=== PATIENT | female | born 1965 | race Caucasian/White ===

== ENCOUNTER 2017-08-12 14:42 | Emergency (ER) | payer OTHER ==
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
[2017-08-12] MEDS ORDERED: KETOROLAC TROMETHAMINE INJ/PF 30 MG/1 ML SDV IM ONE (15:24)
[2017-08-12 15:52] VITALS: BP 137/94
== END 2017-08-12 16:00 | disposition home or self-care (01) ==
LOC: ER 14:42
DX: S46.819A Strain of other muscles, fascia and tendons at shoulder and upper arm level, unspecified arm, initial encounter (principal); S16.1XXA Strain of muscle, fascia and tendon at neck level, initial encounter; M54.2 Cervicalgia; M54.9 Dorsalgia, unspecified; M25.519 Pain in unspecified shoulder; V89.2XXA Person injured in unspecified motor-vehicle accident, traffic, initial encounter
CPT/HCPCS: 99284; 96372; J1885

== ENCOUNTER 2017-08-25 10:33 | Emergency (ER) | payer OTHER ==
--- NOTE | 2017-08-25 12:23 | ER Document Report ---
HPI - HPI Pain Level: Denies Context: Patient is a 51-year-old female presents with nonproductive cough for 10 days with associated runny nose. She denies any fevers, chills, shortness breath, dyspnea on exertion. Admits to history seasonal allergies does not take anything [id number]. Otherwise healthy female at site of history of hypothyroidism and peripheral neuropathy. - CONSTITUTIONAL Constitutional: DENIES: Fever, Chills - EENT EENT: DENIES: Sore Throat, Ear Pain, Eye problems - NEURO Neurology: DENIES: Headache, Weakness, Vision blurred, Dizzinesss / Vertigo - CARDIOVASCULAR Cardiovascular: DENIES: Chest pain - RESPIRATORY Respiratory: REPORTS: Coughing. DENIES: Trouble Breathing - GASTROINTESTINAL Gastrointestinal: DENIES: Abdominal Pain, Black / Bloody Stools - URINARY Urinary: DENIES: Dysuria, Urgency, Frequency - MUSCULOSKELETAL Musculoskeletal: DENIES: Extremity pain Past Medical History - Social History Smoking Status: Unknown if Ever Smoked Chew tobacco use (# tins/day): No Frequency of alcohol use: None Drug Abuse: None Family History: Reviewed & Not Pertinent Patient has suicidal ideation: No Patient has homicidal ideation: No Renal/ Medical History: Denies: Hx Peritoneal Dialysis Past Surgical History: Reports: Hx Cholecystectomy, Hx Orthopedic Surgery - left knee, Hx Tubal Ligation Vertical Provider Document - CONSTITUTIONAL Agree With Documented VS: Yes Notes: PHYSICAL EXAM GENERAL: Alert, interacts well. HEENT: NCAT, pale conjunctiva, extraocular movements intact, pupils PERRL. external ear normal, no evidence of external auditory canal tenderness, blood/ drainage, cerumen impaction, TM intact without evidence of effusion, bulging, injection, MMM, Uvula midline. Airway patent. No evidence of tonsillar enlargement, peritonsillar abscess, retropharyngeal abscess. NECK: Full range of motion. Supple. Trachea midline. LUNGS: Clear to auscultation bilaterally, no wheezes, rales, or rhonchi. No respiratory distress. HEART: Regular rate and rhythm. No murmurs, gallops, or rubs. NEUROLOGICAL: Alert and oriented x4. Normal speech. PSYCH: Normal affect, normal mood. SKIN: Warm, dry, normal turgor. No rashes or lesions noted. - INFECTION CONTROL TRAVEL OUTSIDE OF THE [place] IN LAST 30 DAYS: No - RESPIRATORY O2 Sat by Pulse Oximetry: 100 Course - Re-evaluation Re-evalutation: 08/25/17 13:30 Patient is a 51-year-old female is hemodynamically stable, no acute distress and afebrile. Chest x-ray without any evidence of acute infiltrate or acute cardiopulmonary process. Presentation is consistent with a postnasal drip likely related to seasonal allergies. Low clinical suspicion for any underlying pneumonia, PE given PERC score negative, will score 0. Discussed with patient utilize [id number] antihistamines otherwise follow-up with primary care provider at discharge. Discussed with her strict return precautions stable for discharge home. - Vital Signs Vital signs: Temp Pulse Resp BP Pulse Ox 97.7 F 92 18 110/78 100 08/25/17 10:37 08/25/17 10:37 08/25/17 10:37 08/25/17 10:37 08/25/17 10:37 - Diagnostic Test Radiology reviewed: Image reviewed, Reports reviewed Discharge - Discharge Clinical Impression: Post-nasal drip, Cough Condition: Good Disposition: HOME, SELF-CARE Additional Instructions: Your symptoms today are consistent with post nasal drip which is related to a histamine reaction likely related to allergies. You take an over the counter antihistamine such as Claritin, Marva or Zyrtec. Please return to the ER with any symptoms including fever, puss draining from your nostrils, headache, weakness or any symptoms worrisome to you Referrals: [facility] [NO LOCAL MD] - Follow up as needed [facility] [Provider Group] - Follow up as needed
--- NOTE | 2017-08-25 13:02 | RADIOLOGY REPORT (SQ) ---
EXAM DESCRIPTION: CHEST PA/LAT COMPLETED DATE/TIME: 08/25/2017 12:50 pm REASON FOR STUDY: cough COMPARISON: None. NUMBER OF VIEWS: Two view. TECHNIQUE: Frontal and lateral radiographic views of the chest acquired. LIMITATIONS: None. FINDINGS: LUNGS AND PLEURA: No opacities, masses or pneumothorax. No pleural effusion. MEDIASTINUM AND HILAR STRUCTURES: No masses or contour abnormalities. HEART AND VASCULATURE: Heart normal size. No evidence for failure. BONY STRUCTURES: No acute findings. HARDWARE: None. OTHER: No other significant finding. IMPRESSION: NO SIGNIFICANT RADIOGRAPHIC FINDING IN THE CHEST. TECHNICAL DOCUMENTATION: JOB ID: [id number] [employer]- All Rights Reserved Reading location - IP/workstation name: [email or web address]
[2017-08-25 13:45] VITALS: BP 120/81
== END 2017-08-25 13:45 | disposition home or self-care (01) ==
LOC: ER 10:33
DX: R05 Cough (principal); R09.82 Postnasal drip
CPT/HCPCS: 71046; 99283

== ENCOUNTER → 2017-09-30 | Outpatient (CLI) | payer OTHER ==
[2017-09-30 13:30] LABS: ABSOLUTE LYMPHOCYTES (AUTO) 1.2 10^3/uL (0.5-4.7); ABSOLUTE MONOCYTES (AUTO) 0.7 10^3/uL (0.1-1.4); BASOPHILS % (AUTO) 0.6 % (0-2); EOSINOPHILS % (AUTO) 0.6 % (0-6); HEMOGLOBIN 14.8 g/dL (12.0-15.5); LYMPHOCYTES % (AUTO) 24.6 % (13-45); MEAN CORPUSCULAR HEMOGLOBIN 29.7 pg (27.0-33.4); MEAN CORPUSCULAR HGB CONC 33.7 g/dL (32.0-36.0); MEAN CORPUSCULAR VOLUME 88 fl (80-97); PLATELET COUNT 206 10^3/uL (150-450); RED BLOOD COUNT 4.98 10^6/uL (3.72-5.28); RED CELL DISTRIBUTION WIDTH 14.7 % (11.5-14.0); SEGMENTED NEUTROPHILS % (AUTO) 60.2 % (42-78); TOTAL CELLS COUNTED % (AUTO) 100 %
[2017-09-30 13:53] LABS: ALANINE AMINOTRANSFERASE 36 U/L (9-52); ALKALINE PHOSPHATASE 99 U/L (38-126); ANION GAP 10 (5-19); ASPARTATE AMINO TRANSFERASE 61 U/L (14-36); BILIRUBIN,DIRECT 0.3 mg/dL (0.0-0.4); BILIRUBIN,TOTAL 1.9 mg/dL (0.2-1.3); BLOOD UREA NITROGEN 18 mg/dL (7-20); CALCIUM 9.4 mg/dL (8.4-10.2); CARBON DIOXIDE 32 mmol/L (22-30); CHLORIDE 94 mmol/L (98-107); CHOLESTEROL 205.71 mg/dL (0-200); GLUCOSE 83 mg/dL (75-110); POTASSIUM 3.4 mmol/L (3.6-5.0); SODIUM 136.2 mmol/L (137-145); TOTAL PROTEIN 7.1 g/dL (6.3-8.2); TRIGLYCERIDES 90 mg/dL (<150); URIC ACID 3.4 mg/dL (2.5-7.5)
[2017-09-30 14:04] LABS: DIRECT LDL 71 mg/dL (<100)
[2017-09-30 14:09] LABS: FREE T3 3.59 pg/mL (2.77-5.27); FREE T4 (FREE THYROXINE) 0.77 ng/dL (0.78-2.19)
[2017-09-30 14:11] LABS: ERYTHROCYTE SEDIMENTATION RATE 7 mm/hr (0-30)
[2017-09-30 14:23] LABS: THYROID STIMULATING HORMONE 3.56 uIU/mL (0.47-4.68)
== END ==
LOC: CCC 12:17
DX: G90.09 Other idiopathic peripheral autonomic neuropathy (principal); E03.9 Hypothyroidism, unspecified; E61.2 Magnesium deficiency; E87.6 Hypokalemia
CPT/HCPCS: 36415; 80053; 80061; 82607; 82746; 83036; 83735; 84439; 84443; 84481; 84550; 85025; 85652; 86038

== ENCOUNTER → 2018-01-21 | Outpatient (CLI) | payer OTHER ==
[2018-01-21 14:34] LABS: ABSOLUTE LYMPHOCYTES (AUTO) 1.1 10^3/uL (0.5-4.7); ABSOLUTE MONOCYTES (AUTO) 0.4 10^3/uL (0.1-1.4); ABSOLUTE NEUT (AUTO) 2.3 10^3/uL (1.7-8.2); EOSINOPHILS % (AUTO) 0.9 % (0-6); HEMATOCRIT 37.4 % (36.0-47.0); HEMOGLOBIN 12.3 g/dL (12.0-15.5); LYMPHOCYTES % (AUTO) 28.7 % (13-45); MEAN CORPUSCULAR HEMOGLOBIN 28.1 pg (27.0-33.4); MEAN CORPUSCULAR VOLUME 85 fl (80-97); MONOCYTES % (AUTO) 11.4 % (3-13); PLATELET COUNT 171 10^3/uL (150-450); TOTAL CELLS COUNTED % (AUTO) 100 %; WHITE BLOOD COUNT 3.9 10^3/uL (4.0-10.5)
[2018-01-21 14:57] LABS: ANION GAP 12 (5-19); BLOOD UREA NITROGEN 10 mg/dL (7-20); CALCIUM 8.4 mg/dL (8.4-10.2); CARBON DIOXIDE 31 mmol/L (22-30); CHLORIDE 101 mmol/L (98-107); GLUCOSE 74 mg/dL (75-110); POTASSIUM 3.7 mmol/L (3.6-5.0); SODIUM 143.7 mmol/L (137-145)
== END ==
LOC: CCC 13:56
DX: R55 Syncope and collapse (principal)
CPT/HCPCS: 36415; 80048; 83036; 84443; 85025

== ENCOUNTER → 2019-01-26 | Outpatient (CLI) | payer OTHER ==
[2019-01-26 17:20] LABS: ABSOLUTE MONOCYTES (AUTO) 0.7 10^3/uL (0.1-1.4); EOSINOPHILS % (AUTO) 0.4 % (0-6); HEMOGLOBIN 13.5 g/dL (12.0-15.5); TOTAL CELLS COUNTED % (AUTO) 100 %
[2019-01-26 17:43] LABS: ALBUMIN 4.2 g/dL (3.5-5.0); ALKALINE PHOSPHATASE 88 U/L (38-126); ANION GAP 7 (5-19); ASPARTATE AMINO TRANSFERASE 40 U/L (14-36); BILIRUBIN,DIRECT 0.2 mg/dL (0.0-0.4); BILIRUBIN,TOTAL 1.4 mg/dL (0.2-1.3); BLOOD UREA NITROGEN 17 mg/dL (7-20); CALCIUM 8.8 mg/dL (8.4-10.2); CARBON DIOXIDE 31 mmol/L (22-30); CHLORIDE 97 mmol/L (98-107); GLUCOSE 100 mg/dL (75-110); POTASSIUM 3.5 mmol/L (3.6-5.0); TOTAL PROTEIN 7.1 g/dL (6.3-8.2)
[2019-01-26 18:00] LABS: ABSOLUTE LYMPHOCYTES (AUTO) 1.5 10^3/uL (0.5-4.7); ABSOLUTE NEUT (AUTO) 2.7 10^3/uL (1.7-8.2); BASOPHILS % (AUTO) 0.4 % (0-2); HEMATOCRIT 40.8 % (36.0-47.0); LYMPHOCYTES % (AUTO) 30.5 % (13-45); MEAN CORPUSCULAR HEMOGLOBIN 26.4 pg (27.0-33.4); MEAN CORPUSCULAR VOLUME 80 fl (80-97); MONOCYTES % (AUTO) 13.3 % (3-13); PLATELET COUNT 155 10^3/uL (150-450); RED CELL DISTRIBUTION WIDTH 14.9 % (11.5-14.0); SEGMENTED NEUTROPHILS % (AUTO) 55.4 % (42-78)
== END ==
LOC: OD 16:32
DX: Z00.00 Encounter for general adult medical examination without abnormal findings (principal)
CPT/HCPCS: 36415; 80053; 83735; 85025; 86701

== ENCOUNTER → 2019-07-15 | Outpatient (CLI) | payer OTHER ==
--- NOTE | 2019-07-15 10:37 | WOMENS IMAGING REPORT ---
EXAM DESCRIPTION: ADDISON SANCHEZ BILATERAL SCREEN COMPLETED DATE/TIME: 07/15/2019 8:05 am REASON FOR STUDY: Z12.31 ENCOUNTER FOR SCREENING MAMMOGRAM FOR MALIGNANT NEOPLASM OF BREAST Z12.31 ENCNTR SCREEN MAMMOGRAM FOR MALIGNANT NEOPLASM OF JULIANA COMPARISON: None. EXAM PARAMETERS: Standard craniocaudal and mediolateral oblique views of each breast recorded using digital acquisition. Read with the assistance of CAD. .[facility] - [employer] Inspector Version 9.2 LIMITATIONS: None. FINDINGS: No suspicious masses, suspicious calcifications or architectural distortion. No areas of c oncern. IMPRESSION: Negative MAMMOGRAM. BIRADS 1 BREAST DENSITY: b. There are scattered areas of fibroglandular density. BIRAD: ASSESSMENT: 1 NEGATIVE RECOMMENDATION: ROUTINE SCREENING Please continue yearly bilateral screening mammography in June 2020 COMMENT: The patient has been notified of the results by letter per MQSA requirements. Additional no tification policies are in place for contacting patient with suspicious or incomplete findings. Quality ID #[id number]: The [employer] recommends an annual screening mammogram for women aged 40 years or over. This facility utilizes a reminder system to ensure that all patients receive reminder letters, and/or direct phone calls for appointments. This includes reminders for routine scr eening mammograms, diagnostic mammograms, or other Breast Imaging Interventions when appropriate. Th is patient will be placed in the appropriate reminder system. TECHNICAL DOCUMENTATION: FINDING NUMBER: (1) ASSESSMENT: (1) JOB ID: [id number] [employer]- All Rights Reserved Reading location - IP/workstation name: [email or web address]
== END ==
LOC: WI 07:09
PROVIDERS: ATTEND Family Medicine
DX: Z12.31 Encounter for screening mammogram for malignant neoplasm of breast (principal)
CPT/HCPCS: 77067

== ENCOUNTER 2020-01-30 21:18 | Emergency (ER) | payer SELFPAY ==
--- NOTE | 2020-01-30 23:25 | ER Document Report ---
ED Respiratory Problem - General Chief Complaint: Breathing Difficulty Stated Complaint: DIFFICULTY BREATHING, CONGESTION, NAUSEA, COUGH Time Seen by Provider: 01/30/20 23:23 Primary Care Provider: MOMO LINTON MD [NO LOCAL MD] - Follow up as needed Information source: Patient Notes: 01/30/20 22:56 - ED Nursing Note by LEONEL HERRERA Num: [id number] : 1965 Patient Age: 54 Last Thursday reports nausea, vomiting, diarrhea and feeling light headed- symptoms begin. reports symptoms got better and returned, as be off and on for 6 days. Today was worse. Does complain of SOB, denies chest pain. Denies fevers and chills. States she feels like she is having a panic attack as well. \my notes 54-year-old female with purple hair and was seen by the [facility] Dr. Diaz and who takes magnesium and potassium and folate on a daily basis reports she has had coughing and 1 week of loose brown stools. She feels like she is having a panic attack at this time. She denies any use of alcohol at this time. 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 Patient is mouth and lips are dry. He denies any history of syphilis vaginal discharge bloody stools or hematemesis. She is a smoker. TRAVEL OUTSIDE OF THE [place] IN LAST 30 DAYS: No - HPI Patient complains to provider of: Other - weakness Onset: Last week Quality of pain: Achy Severity: Moderate Pain Level: 2 - Related Data Allergies/Adverse Reactions: amitriptyline Adverse Reaction (Verified 08/25/17 10:35) gabapentin Adverse Reaction (Verified 08/25/17 10:35) pregabalin [From Lyrica] Adverse Reaction (Verified 08/25/17 10:35) Past Medical History - General Information source: Patient - Social History Smoking Status: Current Every Day Smoker Cigarette use (# per day): Yes Chew tobacco use (# tins/day): No Smoking Education Provided: Yes Frequency of alcohol use: None Drug Abuse: None Lives with: Family Family History: Reviewed & Not Pertinent Patient has suicidal ideation: No Patient has homicidal ideation: No Renal/ Medical History: Denies: Hx Peritoneal Dialysis Past Surgical History: Reports: Hx Cholecystectomy, Hx Orthopedic Surgery - left knee, Hx Tubal Ligation Review of Systems - Review of Systems Constitutional: No symptoms reported EENT: No symptoms reported Cardiovascular: No symptoms reported Respiratory: No symptoms reported Gastrointestinal: See HPI, Abdominal pain, Diarrhea, Nausea, Vomiting Genitourinary: No symptoms reported Female Genitourinary: No symptoms reported Musculoskeletal: No symptoms reported Skin: No symptoms reported Hematologic/Lymphatic: No symptoms reported Neurological/Psychological: See HPI, Weakness Physical Exam - Vital signs Vitals: Resp Pulse Ox 22 H 100 01/30/20 22:14 01/30/20 22:14 Interpretation: Hypotensive, Tachycardic - HEENT Head: Normocephalic, Atraumatic Eyes: Normal Extraocular movements intact: Yes Pupils: PERRL Sinus: Normal Mouth/Lips: Other - dry Mucous membranes: Dry Pharynx: Erythema Neck: Normal - Respiratory Respiratory status: No respiratory distress Chest status: Nontender Breath sounds: Normal Chest palpation: Normal - Cardiovascular Rhythm: Tachycardia Heart sounds: Normal auscultation Murmur: No - Abdominal Inspection: Normal Distension: No distension Bowel sounds: Hyperactive Tenderness: Nontender Organomegaly: No organomegaly - Rectal Hemorrhoids: Other - deferred - Genitourinary External exam: Normal - Back Back: Normal - Extremities General upper extremity: Normal inspection General lower extremity: Normal inspection - Neurological Neuro grossly intact: Yes Cognition: Normal Orientation: AAOx4 [place] Coma Scale Eye Opening: Spontaneous [place] Coma Scale Verbal: Oriented [place] Coma Scale Motor: Obeys Commands [place] Coma Scale Total: 15 Speech: Normal Cranial nerves: Normal Motor strength normal: LUE, RUE, LLE, RLE - Psychological Associated symptoms: Anxious - Skin Skin Temperature: Warm Skin Moisture: Dry Skin Turgor: Tenting Course - Vital Signs Vital signs: Temp Pulse Resp BP Pulse Ox 98.0 F 16 109/71 100 01/31/20 02:41 01/31/20 05:52 01/31/20 05:52 01/31/20 05:52 - Laboratory Result Diagrams: 01/31/20 00:34 01/30/20 23:40 Laboratory results interpreted by me: 01/30/20 01/31/20 01/31/20 23:40 00:34 00:34 MCV 79 L MCH 26.4 L RDW 15.1 H Lymph % (Auto) 11.4 L [place] % (Auto) 17.9 H Sodium 130.2 L Potassium 2.4 L* Chloride 72 L Carbon Dioxide 33 H Anion Gap 25 H Est GFR ( Amer) 59 L Est GFR (MDRD) Non-Af 49 L Glucose 119 H Lactic Acid 5.3 H Total Bilirubin 1.6 H AST 61 H Urine Protein Urine Ketones Urine Urobilinogen Ur Leukocyte Esterase Urine Ascorbic Acid 01/31/20 01:10 MCV MCH RDW Lymph % (Auto) [place] % (Auto) Sodium Potassium Chloride Carbon Dioxide Anion Gap Est GFR ( Amer) Est GFR (MDRD) Non-Af Glucose Lactic Acid Total Bilirubin AST Urine Protein 30 H Urine Ketones TRACE H Urine Urobilinogen 2.0 H Ur Leukocyte Esterase MODERATE H Urine Ascorbic Acid 40 H - Diagnostic Test Radiology reviewed: Reports reviewed - Chest x-ray NAD except for old rib fractures Critical Care Note - Critical Care Note Comments: Recheck on patient at 0 400 reveals a much improved patient asking for water. Her blood pressure is much improved. She no longer has any anxiety shakes. Discharge - Discharge Clinical Impression: Gastroenteritis, Hypokalemia Hypotension Qualifiers: Hypotension type: unspecified hypotension type Qualified Code(s): I95.9 - Hypotension, unspecified Diarrhea Qualifiers: Diarrhea type: unspecified type Qualified Code(s): R19.7 - Diarrhea, unspecified UTI (urinary tract infection) Qualifiers: Urinary tract infection type: acute cystitis Hematuria presence: without hematuria Qualified Code(s): N30.00 - Acute cystitis without hematuria Condition: Fair Disposition: HOME, SELF-CARE Additional Instructions: Follow-up with Dr. Diaz return to ER as needed take medicines as directed/take your potassium daily with a meal. Also take your Levaquin daily for 5 days. Take your Pepcid daily for 12 days. Encourage fluids. Prescriptions: Potassium Chloride [K-Tab ER] 20 meq PO DAILY 10 Days #10 tablet.er Levofloxacin [Levaquin 500 mg Tablet] 500 mg PO DAILY #5 tablet Famotidine [Pepcid 20 mg Tablet] 20 mg PO DAILY #12 tablet Referrals: MOMO LINTON MD [NO LOCAL MD] - Follow up as needed
[2020-01-30] MEDS ORDERED: FAMOTIDINE INJ/PF 20 MG/2 ML SDV IV ONE (23:42)
[2020-01-30] MEDS ORDERED: PANTOPRAZOLE SODIUM 40 MG VIAL IV ONE (23:42)
[2020-01-30] MEDS ORDERED: ONDANSETRON HCL INJ/PF 4 MG/2 ML SDV IV ONE (23:42)
[2020-01-30] MEDS ORDERED: LORAZEPAM INJ 2 MG/1 ML VIAL IV ONE (23:43)
[2020-01-30] MEDS: NORMAL SALINE 1000 ML 1,000 ML IV PRN (23:53)
[2020-01-31 00:09] LABS: ALBUMIN 4.7 g/dL (3.5-5.0); ALKALINE PHOSPHATASE 97 U/L (38-126); ASPARTATE AMINO TRANSFERASE 61 U/L (14-36); BILIRUBIN,DIRECT 0.2 mg/dL (0.0-0.4); BILIRUBIN,TOTAL 1.6 mg/dL (0.2-1.3); BLOOD UREA NITROGEN 20 mg/dL (7-20); CALCIUM 9.5 mg/dL (8.4-10.2); GLUCOSE 119 mg/dL (75-110)
[2020-01-31 00:14] LABS: CARBON DIOXIDE 33 mmol/L (22-30); CHLORIDE 72 mmol/L (98-107)
[2020-01-31 00:28] LABS: POTASSIUM 2.4 mmol/L (3.6-5.0)
[2020-01-31] MEDS ORDERED: POTASSI CL 20 MEQ/50 ML RIDER 20 MEQ/50 ML RTUPB IV ONE (00:29)
--- NOTE | 2020-01-31 00:29 | RADIOLOGY REPORT (SQ) ---
EXAM DESCRIPTION: XR CHEST 1 VIEW COMPLETED DATE/TME: 01/30/2020 23:26 CLINICAL HISTORY: 54 years, Female, cough COMPARISON: 08/25/2017 chest NUMBER OF VIEWS: 1 TECHNIQUE: Portable chest LIMITATIONS: None. FINDINGS: The heart size is normal. Osteopenia. Old right rib fractures. Lungs clear. No pneumothorax IMPRESSION: No acute cardiopulmonary process copyright 2010 [employer]- All Rights Reserved
--- NOTE | 2020-01-31 00:30 | RADIOLOGY REPORT (SQ) ---
EXAM DESCRIPTION: XR ABDOMEN 1 VIEW (KUB) COMPLETED DATE/TME: 01/30/2020 23:27 CLINICAL HISTORY: 54 years, Female, diarrhea COMPARISON: None. NUMBER OF VIEWS: 1 TECHNIQUE: AP abdomen LIMITATIONS: None. FINDINGS: The bowel gas pattern is nonspecific. Evaluation for free air limited on a supine view. Abundant stool in the colon. IMPRESSION: Nonspecific bowel gas pattern copyright 2010 [employer]- All Rights Reserved
[2020-01-31 00:46] LABS: ABSOLUTE BASOPHILS # (AUTO) 0.1 10^3/uL (0.0-0.2); ABSOLUTE LYMPHOCYTES (AUTO) 0.8 10^3/uL (0.5-4.7); ABSOLUTE MONOCYTES (AUTO) 1.3 10^3/uL (0.1-1.4); ABSOLUTE NEUT (AUTO) 5.2 10^3/uL (1.7-8.2); BASOPHILS % (AUTO) 0.8 % (0-2); HEMATOCRIT 40.7 % (36.0-47.0); HEMOGLOBIN 13.7 g/dL (12.0-15.5); LYMPHOCYTES % (AUTO) 11.4 % (13-45); MEAN CORPUSCULAR HEMOGLOBIN 26.4 pg (27.0-33.4); MEAN CORPUSCULAR HGB CONC 33.7 g/dL (32.0-36.0); MEAN CORPUSCULAR VOLUME 79 fl (80-97); MONOCYTES % (AUTO) 17.9 % (3-13); PLATELET COUNT 196 10^3/uL (150-450); RED BLOOD COUNT 5.18 10^6/uL (3.72-5.28); RED CELL DISTRIBUTION WIDTH 15.1 % (11.5-14.0); SEGMENTED NEUTROPHILS % (AUTO) 69.9 % (42-78); TOTAL CELLS COUNTED % (AUTO) 100 %; WHITE BLOOD COUNT 7.4 10^3/uL (4.0-10.5)
[2020-01-31 00:55] LABS: ANION GAP 25 (5-19)
[2020-01-31 01:53] LABS: APPEARANCE,URINE SLIGHTLY-CLOUDY; BILIRUBIN,URINE NEGATIVE (NEGATIVE); COLOR,URINE YELLOW; GLUCOSE, URINE NEGATIVE (NEGATIVE); KETONES,URINE TRACE mg/dL (NEGATIVE); LEUKOCYTE ESTERASE,URINE MODERATE (NEGATIVE); NITRITE,URINE NEGATIVE (NEGATIVE); PROTEIN,URINE 30 mg/dL (NEGATIVE); URINE SPECIFIC GRAVITY 1.014
[2020-01-31 02:25] LABS: URINE AMPHETAMINES SCREEN NEGATIVE; URINE BARBITURATES SCREEN NEGATIVE; URINE BENZODIAZEPINES SCREEN NEGATIVE; URINE COCAINE SCREEN NEGATIVE; URINE MARIJUANA (THC) SCREEN NEGATIVE; URINE METHADONE SCREEN NEGATIVE; URINE PHENCYCLIDINE SCREEN NEGATIVE
[2020-01-31] MEDS: NORMAL SALINE 1000 ML 1,000 ML IV PRN (03:06)
[2020-01-31] MEDS ORDERED: LEVOFLOXACIN 750 MG/D5W RTU 750 MG/150 ML RTUPB IV SCH (04:00)
[2020-01-31] MEDS ORDERED: NORMAL SALINE 1000 ML 1,000 ML IV ONE (04:28)
--- NOTE | 2020-01-31 04:32 | RADIOLOGY REPORT (SQ) ---
EXAM DESCRIPTION: CT ABDOMEN PELVIS WITHOUT IV CONTRAST COMPLETED DATE/TME: 01/31/2020 01:15 CLINICAL HISTORY: 54 years, Female, abdominal pain COMPARISON: None. TECHNIQUE: Noncontrast axial, coronal, and sagittal images of the abdomen and pelvis were obtained. Images stored on PACS. All CT scanners at this facility use dose modulation, iterative reconstruction, and/or weight based dosing when appropriate to reduce radiation dose to as low as reasonably achievable (ALARA). [facility]: Dose Right [facility]: CareDose [facility]: Dose Right [facility]: Teradose 4D [facility]: [employer] LIMITATIONS: None. FINDINGS: There is mild scarring within the lung bases. Heart size is normal. No pleural effusion is seen. There is a tiny hiatal hernia. There is no urinary tract calculus or hydronephrosis. No definite inflammatory changes, masses, or abnormal collections are identified on this noncontrast study. There is some high density material within the colon and the appendix, which could be ingested medication such as Pepto-Bismol, old oral radiological contrast, or other high density material. I see no evidence of acute appendicitis. There is no abnormal bowel dilation. There is a mild amount of colonic stool. No pathologically enlarged lymph nodes are seen. There is no abdominal aortic aneurysm. Patient is status post cholecystectomy. There is no acute or suspicious bony abnormality. Incidental disc space narrowing and marginal osteophyte formation with bilateral neural foraminal stenosis are noted at L5-S1. IMPRESSION: No urinary tract calculus or hydronephrosis. No acute abnormality is seen. There is a tiny hiatal hernia. Incidental lumbosacral degenerative changes are noted. TECHNICAL DOCUMENTATION: Quality ID # [id number]: Final reports with documentation of one or more dose reduction techniques (e.g., Automated exposure control, adjustment of the mA and/or kV according to patient size, use of iterative reconstruction technique) copyright 2011 [employer]- All Rights Reserved
[2020-01-31 06:10] VITALS: BP 109/71
--- NOTE | 2020-01-31 09:35 | EKG REPORT ---
SEVERITY:- ABNORMAL ECG - SINUS TACHYCARDIA REPOL ABNRM SUGGESTS ISCHEMIA, DIFFUSE LEADS BORDERLINE PROLONGED QT INTERVAL : Confirmed by: Nixon Jamison 31-Jan-2020 09:35:03
== END 2020-01-31 06:10 | disposition home or self-care (01) ==
LOC: ER 21:18
DX: K52.9 Noninfective gastroenteritis and colitis, unspecified (principal); E87.6 Hypokalemia; I95.9 Hypotension, unspecified; N30.00 Acute cystitis without hematuria; K44.9 Diaphragmatic hernia without obstruction or gangrene; M47.817 Spondylosis without myelopathy or radiculopathy, lumbosacral region; R42 Dizziness and giddiness; R06.02 Shortness of breath; R05 Cough; L98.1 Factitial dermatitis; R68.2 Dry mouth, unspecified; R53.1 Weakness; R11.2 Nausea with vomiting, unspecified; F17.210 Nicotine dependence, cigarettes, uncomplicated; R00.0 Tachycardia, unspecified; Z79.899 Other long term (current) drug therapy
CPT/HCPCS: 93005; 99285; 96361; 96375; 96365; 96366; 36415; 87040; 87086; 80307 ×2; 83605; 83690; 85025; 87077; 87088; 86592; 80053; 81001; 84484; 86701; 87186; 71045; 74018; 74176; 93010; J2060; C9113; J2405; J3480; J7030 ×2; S0028; J1956

== ENCOUNTER 2020-02-14 14:38 | Emergency (ER) | payer SELFPAY ==
[2020-02-14] MEDS ORDERED: POTASSIUM CHLORIDE 20 MEQ PACKET PO ONE ×2 (16:22→18:34)
--- NOTE | 2020-02-14 16:29 | ER Document Report ---
ED Medical Screen (RME) - General Chief Complaint: Abnormal Lab Results Stated Complaint: ABNORMAL LABS Time Seen by Provider: 02/14/20 16:17 Primary Care Provider: [facility] NEERAJ BRITT [Primary Care Provider] - Follow up as needed TRAVEL OUTSIDE OF THE [place]. IN LAST 30 DAYS: No - HPI Notes: 02/14/20 16:23 54-year-old female presents emergency room per request of her doctor from [facility] for hypokalemia and concerns of cardiac arrhythmia by her provider. Patient states she has a history of hypokalemia as well as syncopal events with dizzy spells. Recently has been experiencing some nausea and vomiting today. Patient was unsure of what her potassium was but now she was advised to come to the emergency room. When looking up lab work, it appears that her potassium today was 2.5. Patient states that she has been feeling very weak and dizzy, and states that she does not think her potassium is never been this low. Patient potassium was 2.4 in mid January. Denies any shortness of breath, chest pain, fever or chills I have greeted and performed a rapid initial assessment of this patient. A comprehensive ED assessment and evaluation of the patient, analysis of test results and completion of the medical decision making process will be conducted by additional ED providers. PHYSICAL EXAMINATION: GENERAL: Chronically ill, cachectic and in no acute distress. HEAD: Atraumatic, normocephalic. CV: s1, s2 regular LUNGS: No respiratory distress Musculoskeletal: Normal range of motion NEUROLOGICAL: Normal speech, normal gait. SKIN: Warm, Dry, normal turgor, no rashes or lesions noted. - Related Data Allergies/Adverse Reactions: amitriptyline Adverse Reaction (Verified 02/14/20 16:16) gabapentin Adverse Reaction (Verified 02/14/20 16:16) pregabalin [From Lyrica] Adverse Reaction (Verified 02/14/20 16:16) Home Medications: xanax Past Medical History - Social History Frequency of alcohol use: Rare Drug Abuse: None Renal/ Medical History: Denies: Hx Peritoneal Dialysis Past Surgical History: Reports: Hx Cholecystectomy, Hx Orthopedic Surgery - left knee, Hx Tubal Ligation Physical Exam - Vital signs Vitals: Temp Pulse Resp BP Pulse Ox 98.0 F 94 16 92/68 L 97 02/14/20 15:39 02/14/20 15:39 02/14/20 15:39 02/14/20 15:39 02/14/20 15:39 Course - Vital Signs Vital signs: Temp Pulse Resp BP Pulse Ox 98.0 F 94 16 92/68 L 97 02/14/20 15:39 02/14/20 15:39 02/14/20 15:39 02/14/20 15:39 02/14/20 15:39 Doctor's Discharge - Discharge Referrals: [facility] [Primary Care Provider] - Follow up as needed
[2020-02-14 16:55] LABS: HEMATOCRIT 39.3 % (36.0-47.0); HEMOGLOBIN 13.1 g/dL (12.0-15.5); MEAN CORPUSCULAR HEMOGLOBIN 26.1 pg (27.0-33.4); MEAN CORPUSCULAR HGB CONC 33.4 g/dL (32.0-36.0); MEAN CORPUSCULAR VOLUME 78 fl (80-97); PLATELET COUNT 211 10^3/uL (150-450); RED BLOOD COUNT 5.03 10^6/uL (3.72-5.28); WHITE BLOOD COUNT 5.8 10^3/uL (4.0-10.5)
--- NOTE | 2020-02-14 16:58 | RADIOLOGY REPORT (SQ) ---
EXAM DESCRIPTION: CHEST 2 VIEWS IMAGES COMPLETED DATE/TIME: 02/14/2020 4:50 pm REASON FOR STUDY: dizziness, syncopal events over the last week COMPARISON: 01/30/2020. EXAM PARAMETERS: NUMBER OF VIEWS: two views TECHNIQUE: Digital Frontal and Lateral radiographic views of the chest acquired. RADIATION DOSE: NA LIMITATIONS: none FINDINGS: LUNGS AND PLEURA: No opacities, masses or pneumothorax. No pleural effusion. MEDIASTINUM AND HILAR STRUCTURES: No masses or contour abnormalities. HEART AND VASCULAR STRUCTURES: Heart normal size. No evidence for failure. BONES: No acute findings. HARDWARE: None in the chest. OTHER: No other significant finding. IMPRESSION: NO ACUTE RADIOGRAPHIC FINDING IN THE CHEST. TECHNICAL DOCUMENTATION: JOB ID: [id number] 2010 [employer]- All Rights Reserved Reading location - IP/workstation name: [email or web address]
[2020-02-14 17:12] LABS: BLOOD UREA NITROGEN 14 mg/dL (7-20); CARBON DIOXIDE 37 mmol/L (22-30); CHLORIDE 79 mmol/L (98-107); GLUCOSE 137 mg/dL (75-110)
[2020-02-14 17:13] LABS: ALBUMIN 4.4 g/dL (3.5-5.0); ALKALINE PHOSPHATASE 86 U/L (38-126); ANION GAP 11 (5-19); ASPARTATE AMINO TRANSFERASE 71 U/L (14-36); BILIRUBIN,DIRECT 0.3 mg/dL (0.0-0.4); BILIRUBIN,TOTAL 1.6 mg/dL (0.2-1.3); TOTAL PROTEIN 7.5 g/dL (6.3-8.2)
[2020-02-14 17:15] LABS: POTASSIUM 2.5 mmol/L (3.6-5.0)
[2020-02-14 17:17] LABS: ABSOLUTE LYMPHOCYTES# (MANUAL) 1.2 10^3/uL (0.5-4.7); ABSOLUTE MONOCYTES # (MANUAL) 0.7 10^3/uL (0.1-1.4); BASOPHILS % (MANUAL) 1 % (0-2); EOSINOPHILS % (MANUAL) 1 % (0-6); LYMPHOCYTES % (MANUAL) 21 % (13-45); MONOCYTES % (MANUAL) 12 % (3-13); SEGMENTED NEUTROPHILS % (MAN) 65 % (42-78); TOTAL CELLS COUNTED 100
[2020-02-14 17:18] LABS: ANISOCYTOSIS SLIGHT; PLATELET COMMENT ADEQUATE
[2020-02-14 17:19] LABS: HYPOCHROMASIA SLIGHT; TEAR DROP CELLS SLIGHT
--- NOTE | 2020-02-14 18:22 | EKG REPORT ---
SEVERITY:- ABNORMAL ECG - SINUS RHYTHM MULTIFORM VENTRICULAR PREMATURE COMPLEXES NONSPECIFIC REPOL ABNORMALITY, DIFFUSE LEADS : Confirmed by: Rufus Cruz MD 14-Feb-2020 18:22:14
--- NOTE | 2020-02-14 18:25 | ER Document Report ---
ED General - General Chief Complaint: Abnormal Lab Results Stated Complaint: ABNORMAL LABS Time Seen by Provider: 02/14/20 16:17 Primary Care Provider: [facility] [Primary Care Provider] - Follow up as needed TRAVEL OUTSIDE OF THE U.S. IN LAST 30 DAYS: No - HPI Notes: 54-year-old female presents with abnormal lab results. Patient states that she has been feeling bad for the past 3 weeks. She has had dizziness, nausea and vomiting, abdominal abdominal cramping, and states she has had 10 episodes of passing out. She reports she is tested negative for COVID. Patient states that she was in the emergency department last Thursday and receive potassium, magnesium and something for panic attacks. She states that she had follow-up with her primary care doctor today, had repeat labs done. She states that she was called and told that her potassium was dangerously low and needs to go to the emergency department. She has a history of low potassium, she states that it is believed is from taking antacids, she has stopped taking Prilosec for the past 1 week. S he denies diuretic use. States that her mother had a history of low potassium, however she took Lasix. She denies dysuria though reports she recently had a UTI. She had history of cholecystectomy about 4 years ago. - Related Data Allergies/Adverse Reactions: amitriptyline Adverse Reaction (Verified 02/14/20 16:16) gabapentin Adverse Reaction (Verified 02/14/20 16:16) pregabalin [From Lyrica] Adverse Reaction (Verified 02/14/20 16:16) Home Medications: xanax Past Medical History - General Information source: Patient - Social History Smoking Status: Never Smoker Frequency of alcohol use: Rare Drug Abuse: None Family History: Reviewed & Not Pertinent Renal/ Medical History: Denies: Hx Peritoneal Dialysis Past Surgical History: Reports: Hx Cholecystectomy, Hx Orthopedic Surgery - left knee, Hx Tubal Ligation Review of Systems - Review of Systems Constitutional: denies: Fever EENT: No symptoms reported Cardiovascular: denies: Chest pain Respiratory: denies: Short of breath Gastrointestinal: Nausea, Vomiting Genitourinary: denies: Dysuria Female Genitourinary: No symptoms reported Musculoskeletal: denies: Muscle pain Skin: No symptoms reported Hematologic/Lymphatic: No symptoms reported Neurological/Psychological: Weakness - Generalized Physical Exam - Vital signs Vitals: Temp Pulse Resp BP Pulse Ox 98.0 F 94 16 92/68 L 97 02/14/20 15:39 02/14/20 15:39 02/14/20 15:39 02/14/20 15:39 02/14/20 15:39 - General General appearance: Alert In distress: None - HEENT Head: Normocephalic, Atraumatic Eyes: No: Scleral icterus Extraocular movements intact: Yes Pupils: PERRL - Respiratory Breath sounds: Normal - Cardiovascular Rhythm: Regular Heart sounds: Normal auscultation Normal capillary refill: Yes - Abdominal Distension: No distension Bowel sounds: Normal Tenderness: Nontender - Extremities General upper extremity: Normal ROM General lower extremity: Normal ROM. No: Edema - Neurological Neuro grossly intact: Yes Cognition: Normal Orientation: AAOx4 Cranial nerves: Normal Cerebellar coordination: Normal Motor strength normal: LUE Sensory: Normal - Psychological Associated symptoms: Flat affect - Skin Skin Temperature: Warm Course - Re-evaluation Re-evalutation: 02/14/20 18:51 54-year-old female sent to the emergency department for outpatient labs showing hypokalemia, apparently has a history of this. Has been feeling unwell for the past 3 weeks, has been seen and evaluated a few times. On exam she is thin, no acute distress, neurologically intact, abdomen without any appreciable areas of tenderness. Suspect hypokalemia due to poor p.o. intake versus possibly medication induced. Reviewed med list and she is not on diuretic. Will replace with 40 mEq oral and 40 mEq IV potassium, will additionally give 2 g magnesium. Trial Pepcid for her reported upper abdominal pain. Check lipase to evaluate for pancreatitis. 02/14/20 21:59 No elevation of lipase 02/14/20 22:17 Informed by nursing that medications were just hung. She has received her p.o. medications. Orthostatics negative. I had ordered a repeat EKG, however I will repeat this once her infusions are completed. 02/15/20 00:43 Electrolyte infusions have finished. Patient is tolerating p.o. currently. Will repeat EKG at this time. 02/15/20 01:00 Patient continues to be well-appearing. No vomiting while in the emergency department. I discussed with her need to have close follow-up with her primary care doctor to have labs rechecked. Patient feels comfortable going home at is time. Return precautions were given, patient stable at time of discharge. - Vital Signs Vital signs: Temp Pulse Resp BP Pulse Ox 98.0 F 72 16 102/68 97 02/14/20 15:39 02/14/20 21:41 02/14/20 15:39 02/14/20 21:41 02/14/20 15:39 - Laboratory Result Diagrams: 02/14/20 16:40 02/14/20 16:40 Laboratory results interpreted by me: 02/14/20 02/14/20 02/14/20 16:40 16:40 22:05 MCV 78 L MCH 26.1 L RDW 15.0 H Sodium 127.3 L Potassium 2.5 L* Chloride 79 L Carbon Dioxide 37 H Glucose 137 H Total Bilirubin 1.6 H AST 71 H Ur Leukocyte Esterase SMALL H - Diagnostic Test Radiology results interpreted by me: 02/15/20 00:57 Repeat E KG obtained and interpreted by me. Sinus rhythm, rate 71. Narrow QRS. Prolonged QTC, reviewed previous EKG and she has had prolonged QTC in the past. No PVC on this EKG. Discharge - Discharge Clinical Impression: Hypokalemia, Hypomagnesemia Condition: Stable Disposition: HOME, SELF-CARE Additional Instructions: Please have your lab values rechecked later this week. Continue all medications as prescribed. Return to the emergency department for any concerning worsening symptoms. Referrals: [facility] [Primary Care Provider] - Follow up as needed
[2020-02-14] MEDS ORDERED: POTASSI CL 40 MEQ/NS 1L 1,000 ML IV PRN (18:34)
[2020-02-14] MEDS ORDERED: FAMOTIDINE INJ/PF 20 MG/2 ML SDV IV ONE (18:41)
[2020-02-14] MEDS ORDERED: ONDANSETRON HCL INJ/PF 4 MG/2 ML SDV IV ONE (18:41)
[2020-02-14] MEDS: MAGNESIUM SULFATE/D5W 1 GM/100 ML RTUPB IV SCH ×2 (19:48→22:04)
[2020-02-14 21:49] VITALS: BP 118/86
[2020-02-14 22:32] LABS: APPEARANCE,URINE CLEAR; BILIRUBIN,URINE NEGATIVE (NEGATIVE); COLOR,URINE STRAW; GLUCOSE, URINE NEGATIVE (NEGATIVE); KETONES,URINE NEGATIVE (NEGATIVE); LEUKOCYTE ESTERASE,URINE SMALL (NEGATIVE); NITRITE,URINE NEGATIVE (NEGATIVE); PROTEIN,URINE NEGATIVE (NEGATIVE); URINE SPECIFIC GRAVITY 1.002; UROBILINOGEN,URINE NEGATIVE mg/dL (<2.0)
--- NOTE | 2020-02-15 07:41 | EKG REPORT ---
SEVERITY:- ABNORMAL ECG - SINUS RHYTHM NONSPECIFIC REPOL ABNORMALITY, DIFFUSE LEADS PROLONGED QT INTERVAL EARLY PRECORDIAL TRANSITION NEED TO AT LEAST R/O OLD TRUE POST DE. : Confirmed by: Rufus Cruz MD 15-Feb-2020 07:41:03
== END 2020-02-15 01:29 | disposition home or self-care (01) ==
LOC: ER 14:38
DX: E87.6 Hypokalemia (principal); E83.42 Hypomagnesemia; R11.2 Nausea with vomiting, unspecified; R42 Dizziness and giddiness; R10.10 Upper abdominal pain, unspecified; R55 Syncope and collapse; R53.1 Weakness; Z87.440 Personal history of urinary (tract) infections; Z90.49 Acquired absence of other specified parts of digestive tract; Z79.899 Other long term (current) drug therapy
CPT/HCPCS: 93005; 99285; 96375; 96365; 96366; 36415; 83690; 83735; 85025; 87070; 81001; 84484; 71046; 93010; J3475; J2405; S0028; J3480; J3490

== ENCOUNTER → 2020-02-14 | Outpatient (CLI) | payer OTHER ==
--- NOTE | 2020-02-14 12:49 | EKG REPORT ---
SEVERITY:- ABNORMAL ECG - SINUS RHYTHM VENTRICULAR PREMATURE COMPLEX REPOL ABNRM SUGGESTS ISCHEMIA, DIFFUSE LEADS PROLONGED QT INTERVAL : Confirmed by: Rufus Cruz MD 14-Feb-2020 12:49:19
[2020-02-14 13:25] LABS: ANION GAP 13 (5-19); BLOOD UREA NITROGEN 14 mg/dL (7-20); CALCIUM 9.2 mg/dL (8.4-10.2); CARBON DIOXIDE 38 mmol/L (22-30); CHLORIDE 79 mmol/L (98-107); GLUCOSE 104 mg/dL (75-110)
[2020-02-14 13:41] LABS: POTASSIUM 2.5 mmol/L (3.6-5.0)
== END ==
LOC: CCC 12:07
PROVIDERS: ATTEND Family Medicine
DX: E87.8 Other disorders of electrolyte and fluid balance, not elsewhere classified (principal); R55 Syncope and collapse
CPT/HCPCS: 36415; 80048; 83036; 83735; 84443; 93005; 93010; 93041

== ENCOUNTER 2020-03-22 15:49 | Emergency (ER) | payer OTHER ==
[2020-03-22] MEDS ORDERED: ONDANSETRON 4 MG TAB.RAPDIS PO ONE (16:09)
[2020-03-22] MEDS ORDERED: NORMAL SALINE 1000 ML 1,000 ML IV ONE (16:13)
--- NOTE | 2020-03-22 16:13 | ER Document Report ---
ED Medical Screen (RME) - General Chief Complaint: Cough Stated Complaint: COUGH,CONGESTION,HEADACHE Time Seen by Provider: 03/22/20 16:03 Primary Care Provider: NEERAJ CARTAGENA [Primary Care Provider] - Follow up as needed Mode of Arrival: Wheelchair Information source: Patient Notes: 54-year-old female presents to ED for complaint of being sick times about 2 months. She states she was negative covered last month. States she been running a fever of 100 201 for the last several days. States last time she checked her temperature was 2 days ago. She states she been taking NyQuil and Mucinex frequently. She states she is also been seen multiple times for low potassium and magnesium. She states she has been admitted for this before as well. Patient is alert oriented respirations regular unlabored speaking in full sentences. She states she does not use any illicit drugs but she does drink on the weekends. I have greeted and performed a rapid initial assessment of this patient. A comprehensive ED assessment and evaluation of the patient, analysis of test results and completion of medical decision making process will be conducted by an additional ED providers. TRAVEL OUTSIDE OF THE [place] IN LAST 30 DAYS: No - Related Data Allergies/Adverse Reactions: amitriptyline Adverse Reaction (Verified 02/14/20 16:16) gabapentin Adverse Reaction (Verified 02/14/20 16:16) pregabalin [From Lyrica] Adverse Reaction (Verified 02/14/20 16:16) Past Medical History Renal/ Medical History: Denies: Hx Peritoneal Dialysis Past Surgical History: Reports: Hx Cholecystectomy, Hx Orthopedic Surgery - left knee, Hx Tubal Ligation Doctor's Discharge - Discharge Referrals: NEERAJ CARTAGENA [Primary Care Provider] - Follow up as needed
--- NOTE | 2020-03-22 16:56 | RADIOLOGY REPORT (SQ) ---
EXAM DESCRIPTION: CHEST SINGLE VIEW IMAGES COMPLETED DATE/TIME: 03/22/2020 4:48 pm REASON FOR STUDY: Short of breath sick fever COMPARISON: 02/14/2020. EXAM PARAMETERS: NUMBER OF VIEWS: One view. TECHNIQUE: Single frontal radiographic view of the chest acquired. RADIATION DOSE: NA LIMITATIONS: None. FINDINGS: LUNGS AND PLEURA: No opacities, masses or pneumothorax. No pleural effusion. MEDIASTINUM AND HILAR STRUCTURES: No masses. Contour normal. HEART AND VASCULAR STRUCTURES: Heart normal in size. Normal vasculature. BONES: No acute findings. HARDWARE: None in the chest. OTHER: No other significant finding. IMPRESSION: NO ACUTE RADIOGRAPHIC FINDING IN THE CHEST. TECHNICAL DOCUMENTATION: JOB ID: [id number] [employer]- All Rights Reserved Reading location - IP/workstation name: [email or web address]
--- NOTE | 2020-03-22 16:58 | ER Document Report ---
ED General - General Chief Complaint: Cough Stated Complaint: COUGH,CONGESTION,HEADACHE Time Seen by Provider: 03/22/20 16:03 Primary Care Provider: [facility] [Primary Care Provider] - Follow up as needed Mode of Arrival: Wheelchair Notes: Patient is a 54-year-old white female with a history of electrolyte disturbances who presents to the emergency department with a chief complaint of generally feeling unwell for the past 3 weeks. She states she is got a swollen sore right tonsil is worse with oral intake. Is accompanied by a dry cough and generalized malaise and fatigue. She has had 2- COVID tests previously. She did travel recently to [place] to visit her daughter but states her daughter is well and has had no other contacts or any sick contacts or other travel. She admits to transient fevers last noted 2 days ago. She states she is just still not feeling well and wanted to be reevaluated. She admits to some associated nausea. She denies any vomiting or diarrhea. No rashes. No chest pain or shortness of breath. No headache. TRAVEL OUTSIDE OF THE [place] IN LAST 30 DAYS: No - Related Data Allergies/Adverse Reactions: amitriptyline Adverse Reaction (Verified 02/14/20 16:16) gabapentin Adverse Reaction (Verified 02/14/20 16:16) pregabalin [From Lyrica] Adverse Reaction (Verified 02/14/20 16:16) Past Medical History - General Information source: Patient - Social History Smoking Status: Current Every Day Smoker Family History: Reviewed & Not Pertinent Renal/ Medical History: Denies: Hx Peritoneal Dialysis Past Surgical History: Reports: Hx Cholecystectomy, Hx Orthopedic Surgery - left knee, Hx Tubal Ligation Review of Systems - Review of Systems Constitutional: Fever EENT: Throat pain Cardiovascular: denies: Chest pain Respiratory: Cough Gastrointestinal: denies: Abdominal pain Genitourinary: denies: Pain Female Genitourinary: denies: Vaginal discharge Musculoskeletal: denies: Back pain Skin: denies: Lesions Hematologic/Lymphatic: denies: Easy bruising Neurological/Psychological: denies: Headaches Physical Exam - Vital signs Vitals: Temp Pulse Resp BP Pulse Ox 99.9 F 83 20 108/75 97 03/22/20 16:13 03/22/20 16:13 03/22/20 16:13 03/22/20 16:13 03/22/20 16:13 - General General appearance: Appears well, Alert In distress: None - HEENT Head: Normocephalic, Atraumatic Eyes: Normal Conjunctiva: Normal Extraocular movements intact: Yes Eyelashes: Normal Pupils: PERRL Ears: Normal External canal: Normal Tympanic membrane: Normal Nasal: Normal Mouth/Lips: Normal Mucous membranes: Normal Pharynx: Normal Neck: Normal, Supple - Respiratory Respiratory status: No respiratory distress Chest status: Nontender Breath sounds: Normal Chest palpation: Normal - Cardiovascular Rhythm: Regular Heart sounds: Normal auscultation - Abdominal Inspection: Normal Distension: No distension Bowel sounds: Normal Tenderness: Nontender Organomegaly: No organomegaly - Extremities General upper extremity: No: Tender, Edema General lower extremity: No: Tender, Edema, Lina's sign - Neurological Neuro grossly intact: Yes Cognition: Normal Orientation: AAOx4 - Psychological Associated symptoms: Normal affect, Normal mood - Skin Skin Temperature: Warm Skin Moisture: Dry Skin Color: Normal Course - Re-evaluation Re-evalutation: 03/22/20 21:26 Chest x-ray negative for acute process per radiologist. Slight decrease in sodium, chloride and potassium. Patient was given a liter normal saline and 40 mill equivalents p.o. potassium. She is pending COVID-19 swabbing. Rapid strep was negative pending culture. We discussed potassium containing foods and to increase some of her diet over the next several days. Counseled her regarding the importance of close outpatient follow-up with her primary doctor and advised she return here or any ER immediately with any new, persistent or worsening symptoms. She verbalized understood and agreed. We discussed COVID-19 isolation and quarantine measures pending results. - Vital Signs Vital signs: Temp Pulse Resp BP Pulse Ox 99.9 F 83 20 108/75 97 03/22/20 16:13 03/22/20 16:13 03/22/20 16:13 03/22/20 16:13 03/22/20 16:13 - Laboratory Result Diagrams: 03/22/20 17:45 03/22/20 17:45 Laboratory results interpreted by me: 03/22/20 03/22/20 17:45 17:45 MCH 26.3 L RDW 16.3 H Bledsoe % (Auto) 13.3 H Sodium 134.7 L Potassium 3.1 L Chloride 90 L Carbon Dioxide 36 H AST 60 H Discharge - Discharge Clinical Impression: Hypokalemia, Person under investigation for COVID-19 Condition: Stable Disposition: HOME, SELF-CARE Instructions: COVID-19 Guidance for Persons Under Investigation Additional Instructions: Please increase your intake of potassium containing foods over the next several days in your diet. You are pending results for a throat culture and COVID-19 testing. Please isolate yourself in your home and quarantine. You will be contacted with your results of the COVID-19 swab. Please quarantine for at least 10 days or until you are symptom-free for 24 hours or more. Please follow-up with your regular doctor closely for continued outpatient care management. Please return here or any ER immediately with any new, persistent or worsening symptoms. Referrals: [facility] [Primary Care Provider] - Follow up as needed
[2020-03-22 19:26] LABS: ABSOLUTE LYMPHOCYTES (AUTO) 1.3 10^3/uL (0.5-4.7); ABSOLUTE MONOCYTES (AUTO) 0.9 10^3/uL (0.1-1.4); ABSOLUTE NEUT (AUTO) 4.5 10^3/uL (1.7-8.2); BASOPHILS % (AUTO) 0.4 % (0-2); EOSINOPHILS % (AUTO) 0.3 % (0-6); HEMATOCRIT 39.1 % (36.0-47.0); HEMOGLOBIN 12.9 g/dL (12.0-15.5); LYMPHOCYTES % (AUTO) 19.3 % (13-45); MEAN CORPUSCULAR HEMOGLOBIN 26.3 pg (27.0-33.4); MEAN CORPUSCULAR VOLUME 80 fl (80-97); MONOCYTES % (AUTO) 13.3 % (3-13); PLATELET COUNT 213 10^3/uL (150-450); RED BLOOD COUNT 4.89 10^6/uL (3.72-5.28); RED CELL DISTRIBUTION WIDTH 16.3 % (11.5-14.0); SEGMENTED NEUTROPHILS % (AUTO) 66.7 % (42-78); TOTAL CELLS COUNTED % (AUTO) 100 %; WHITE BLOOD COUNT 6.8 10^3/uL (4.0-10.5)
[2020-03-22 19:27] LABS: APPEARANCE,URINE CLEAR; BILIRUBIN,URINE NEGATIVE (NEGATIVE); COLOR,URINE YELLOW; GLUCOSE, URINE NEGATIVE (NEGATIVE); KETONES,URINE NEGATIVE (NEGATIVE); PROTEIN,URINE NEGATIVE (NEGATIVE); URINE SPECIFIC GRAVITY 1.008; UROBILINOGEN,URINE NEGATIVE mg/dL (<2.0)
[2020-03-22 19:41] LABS: ALBUMIN 3.6 g/dL (3.5-5.0); ALKALINE PHOSPHATASE 85 U/L (38-126); ANION GAP 9 (5-19); ASPARTATE AMINO TRANSFERASE 60 U/L (14-36); BILIRUBIN,DIRECT 0.3 mg/dL (0.0-0.4); BILIRUBIN,TOTAL 0.8 mg/dL (0.2-1.3); BLOOD UREA NITROGEN 12 mg/dL (7-20); CALCIUM 8.8 mg/dL (8.4-10.2); CARBON DIOXIDE 36 mmol/L (22-30); CHLORIDE 90 mmol/L (98-107); GLUCOSE 104 mg/dL (75-110); PHOSPHORUS 3.5 mg/dL (2.5-4.5); POTASSIUM 3.1 mmol/L (3.6-5.0); TOTAL PROTEIN 6.4 g/dL (6.3-8.2)
[2020-03-22] MEDS ORDERED: POTASSIUM CHLORIDE 20 MEQ PACKET PO ONE (20:53)
[2020-03-22 21:36] VITALS: BP 114/78
== END 2020-03-22 21:47 | disposition home or self-care (01) ==
LOC: ER 15:49
DX: E87.6 Hypokalemia (principal); R05 Cough; R53.81 Other malaise; R53.83 Other fatigue; R11.0 Nausea; R07.0 Pain in throat; F17.200 Nicotine dependence, unspecified, uncomplicated; Z20.828 Contact with and (suspected) exposure to other viral communicable diseases
CPT/HCPCS: 99284; 96360; 36415; 87070; 87880; 83735; 84100; 85025; 87635; 80053; 81001; 71045; S0119; J7030; J3490; C9803

== ENCOUNTER 2020-04-23 13:26 | Emergency (ER) | payer OTHER ==
--- NOTE | 2020-04-23 15:33 | ER Document Report ---
ED Medical Screen (RME) - General Stated Complaint: RIGHT SIDE PAIN Time Seen by Provider: 04/23/20 15:27 Primary Care Provider: NEERAJ CARTAGENA [Primary Care Provider] - Follow up as needed Mode of Arrival: Ambulatory Information source: Patient Notes: Patient presenting to the emergency department chief complaint of pain in the right side of her neck that now radiates down into the right chest/axillary area. She states she cannot move her arm. She denies any trauma. She has not taken anything for pain today. I have greeted and performed a rapid initial assessment of this patient. A comprehensive ED assessment and evaluation of the patient, analysis of test results and completion of the medical decision making process will be conducted by additional ED providers. I have specifically instructed the patient or family members with the patient to immediately return to any nursing staff should anything change in the patient's condition or with their chief complaint. TRAVEL OUTSIDE OF THE [place] IN LAST 30 DAYS: No - Related Data Allergies/Adverse Reactions: amitriptyline Adverse Reaction (Verified 02/14/20 16:16) gabapentin Adverse Reaction (Verified 02/14/20 16:16) pregabalin [From Lyrica] Adverse Reaction (Verified 02/14/20 16:16) Past Medical History Renal/ Medical History: Denies: Hx Peritoneal Dialysis Past Surgical History: Reports: Hx Cholecystectomy, Hx Orthopedic Surgery - left knee, Hx Tubal Ligation Physical Exam - Vital signs Vitals: Temp Pulse Resp BP Pulse Ox 98.1 F 91 20 103/72 100 04/23/20 14:05 04/23/20 14:05 04/23/20 14:05 04/23/20 14:05 04/23/20 14:05 Course - Vital Signs Vital signs: Temp Pulse Resp BP Pulse Ox 98.1 F 91 20 103/72 100 04/23/20 14:05 04/23/20 14:05 04/23/20 14:05 04/23/20 14:05 04/23/20 14:05 Doctor's Discharge - Discharge Referrals: NEERAJ CARTAGENA [Primary Care Provider] - Follow up as needed
--- NOTE | 2020-04-23 16:13 | RADIOLOGY REPORT (SQ) ---
EXAM DESCRIPTION: CHEST 2 VIEWS IMAGES COMPLETED DATE/TIME: 04/23/2020 3:54 pm REASON FOR STUDY: neck pain radiating into chest R side COMPARISON: 03/22/2020 EXAM PARAMETERS: NUMBER OF VIEWS: two views TECHNIQUE: Digital Frontal and Lateral radiographic views of the chest acquired. RADIATION DOSE: NA LIMITATIONS: none FINDINGS: LUNGS AND PLEURA: No opacities, masses or pneumothorax. No pleural effusion. MEDIASTINUM AND HILAR STRUCTURES: No masses or contour abnormalities. HEART AND VASCULAR STRUCTURES: Heart normal size. No evidence for failure. BONES: No acute findings. HARDWARE: None in the chest. OTHER: No other significant finding. IMPRESSION: NO ACUTE RADIOGRAPHIC FINDING IN THE CHEST. TECHNICAL DOCUMENTATION: JOB ID: [id number] 2010 [employer]- All Rights Reserved Reading location - IP/workstation name: [email or web address]
--- NOTE | 2020-04-23 16:14 | RADIOLOGY REPORT (SQ) ---
EXAM DESCRIPTION: SOFT TISSUE NECK IMAGES COMPLETED DATE/TIME: 04/23/2020 3:54 pm REASON FOR STUDY: neck pain radiating into chest R side COMPARISON: None. NUMBER OF VIEWS: Two views. TECHNIQUE: AP and lateral radiographic image of the soft tissues of the neck. LIMITATIONS: None. FINDINGS: EPIGLOTTIS: Normal. Contour normal. Aryepiglottic folds normal. PREVERTEBRAL SOFT TISSUES: Normal. No soft tissue swelling. SUBGLOTTIC AREA: Normal. No narrowing. RETROPHARYNGEAL SPACE: Normal. No soft tissue masses. BONES: Mild malalignment C3-4. LUNG APICES: See separate report same date. OTHER: No radiopaque foreign body. No other significant finding. IMPRESSION: No acute findings. TECHNICAL DOCUMENTATION: JOB ID: [id number] 2010 [employer]- All Rights Reserved Reading location - IP/workstation name: [email or web address]
[2020-04-24] MEDS ORDERED: ACETAMINOPHEN 325 MG TABLET PO ONE (00:57)
[2020-04-24] MEDS ORDERED: MORPHINE SULFATE 10 MG/ML INJ IV ONE (08:03)
[2020-04-24] MEDS ORDERED: ONDANSETRON HCL INJ/PF 4 MG/2 ML SDV IV ONE (08:04)
--- NOTE | 2020-04-24 08:11 | ER Document Report ---
ED General - General Chief Complaint: Neck Pain >24hrs old Stated Complaint: RIGHT SIDE PAIN Time Seen by Provider: 04/23/20 15:27 Primary Care Provider: [facility] [Primary Care Provider] - Follow up as needed Mode of Arrival: Ambulatory TRAVEL OUTSIDE OF THE [place] IN LAST 30 DAYS: No - HPI Notes: Chief complaint: Right side neck and chest pain History of present illness: Patient presenting to the emergency department referred from [facility] with chief complaint of pain in the right side of her neck that now radiates down into the right chest/axillary area. She states she cannot move her arm. She denies any trauma. She has not taken anything for pain today. Denies fever chills. Denies difficulty swallowing. Denies shortness of breath. Denies cough or hemoptysis. She is a non-smoker. Patient says she is lost about 20 pounds within the last month. This is unexplained weight loss. - Related Data Allergies/Adverse Reactions: amitriptyline Adverse Reaction (Verified 04/24/20 07:33) gabapentin Adverse Reaction (Verified 04/24/20 07:33) pregabalin [From Lyrica] Adverse Reaction (Verified 04/24/20 07:33) Home Medications: NEURO-DERM. HTN. THYROID. ENEMIA Past Medical History - General Information source: Patient - Social History Smoking Status: Never Smoker Frequency of alcohol use: None Drug Abuse: None Family History: Reviewed & Not Pertinent - Past Medical History Cardiac Medical History: Denies: Hx Coronary Artery Disease, Hx Hypertension, Hx Pulmonary Embolism Pulmonary Medical History: Reports: None Endocrine Medical History: Reports: Hx Hypothyroidism. Denies: Hx Diabetes Mellitus Type 1, Hx Diabetes Mellitus Type 2 Renal/ Medical History: Denies: Hx Peritoneal Dialysis Malignancy Medical History: Reports: None GI Medical History: Reports: None Traumatic Medical History: Reports: None Past Surgical History: Reports: Hx Cholecystectomy, Hx Orthopedic Surgery - left knee, Hx Tubal Ligation Review of Systems - Review of Systems Notes: Constitutional: Negative for fever. HENT: Negative for sore throat. Eyes: Negative for visual changes. Cardiovascular: As per HPI. Respiratory: Negative for shortness of breath. Gastrointestinal: Negative for abdominal pain, vomiting or diarrhea. Genitourinary: Negative for dysuria. Musculoskeletal: Negative for back pain. Skin: Negative for rash. Neurological: Negative for headaches, weakness or numbness. 10 point ROS negative except as marked above and in HPI. Physical Exam - Vital signs Vitals: Temp Pulse Resp BP Pulse Ox 98.1 F 91 20 103/72 100 04/23/20 14:05 04/23/20 14:05 04/23/20 14:05 04/23/20 14:05 04/23/20 14:05 - Notes Notes: GENERAL: Chronically ill-appearing female of approximately stated age who appears uncomfortable. SKIN: Pale. Good turgor no rashes. HEAD: Normocephalic atraumatic. EYES: PERRLA. EOMI. Conjunctivae and sclerae clear. EARS: CANALS AND TMS CLEAR. NOSE: CLEAR. MOUTH: Moist mucosa. Good dentition. No stridor or edema. No drooling. NECK: Tenderness right anterolateral neck area without palpable masses. No visible swelling. Supple with normal range of motion although she complains of some right shoulder pain with rotation of the neck actively or passively to the right side.. No masses or thyromegaly. No adenopathy. Carotids 2+ without bruits. No JVD. BACK: Symmetrical without tenderness. CHEST: Exquisitely tender right anterior chest area to palpation. Mild splinting of respirations on right side. Respirations unlabored. Breath sounds clear and symmetrical. HEART: Regular rhythm. No murmur gallop or rub. ABDOMEN: Soft nontender without masses, organomegaly or rebound. Bowel sounds normally active. No bruits. GENITALIA: Deferred. EXTREMITIES: No edema. No calf tenderness. Cap refill less than 1.5 seconds. Dorsalis pedis and posterior tibial pulses 3+ and symmetrical. NEUROLOGICAL: GCS 15. Alert and oriented x3. Normal gait. Fluent speech. Cranial nerves II through XII intact. Sensorimotor and cerebellar normal. Normal tone. PSYCHIATRIC: Flat affect. Course - Re-evaluation Re-evalutation: 04/24/20 12:51 Examination initially showed no clear-cut cause of the patient's discomfort. Initial study included plain films of the neck read as negative by the radiologist. Subsequently patient had CT soft tissue neck with contrast and also had chest CT with contrast. The studies demonstrated a nondisplaced right eighth rib fracture. Patient is clearly tender in this area and I think the remainder of her symptoms radiating up into her neck are likely to be due to muscular spasm. She is improved here with symptomatic treatment. She appears stable for outpatient management. No acute changes of ST segment or T waves on EKG. Findings, clinical impression and plan of treatment have been discussed with patient/family. Understanding of current findings and recommendations has been acknowledged by them and there is agreement regarding disposition and follow-up. 04/24/20 13:50 - Vital Signs Vital signs: Temp Pulse Resp BP Pulse Ox 97.4 F 76 15 116/81 100 04/24/20 10:52 04/24/20 10:52 04/24/20 10:52 04/24/20 10:52 04/24/20 10:52 - Laboratory Result Diagrams: 04/24/20 09:35 04/24/20 09:35 Laboratory results interpreted by me: 04/24/20 04/24/20 09:35 09:35 MCH 26.9 L RDW 16.4 H Jennings % (Auto) 16.0 H Sodium 135.9 L Potassium 3.2 L AST 38 H Total Protein 6.0 L Albumin 3.1 L - Diagnostic Test Radiology reviewed: Image reviewed, Reports reviewed Radiology results interpreted by me: 04/24/20 12:51 Chest X-Ray 04/23/20 15:29 IMPRESSION: NO ACUTE RADIOGRAPHIC FINDING IN THE CHEST. Soft Tissue Neck X-Ray 04/23/20 15:29 IMPRESSION: No acute findings. Soft Tissue Neck CT 04/24/20 08:04 IMPRESSION: 1. No significant finding in the soft tissues of the neck. No lymphadenopathy or subcutaneous mass or fluid. 2. Background mild pulmonary emphysema. No acute pulmonary disease. 3. Age indeterminate nondisplaced fracture right lateral 8th rib, has a more chronic appearance. Chest CT 04/24/20 08:05 IMPRESSION: 1. No significant finding in the soft tissues of the neck. No lymphadenopathy or subcutaneous mass or fluid. 2. Background mild pulmonary emphysema. No acute pulmonary disease. 3. Age indeterminate nondisplaced fracture right lateral 8th rib, has a more chronic appearance. - EKG Interpretation by Me Additional EKG results interpreted by me: 04/24/20 13:48 Twelve-lead EKG reviewed by me contemporaneously: 1344 hrs. Indication for study: Neck and upper chest pain Rhythm: Normal sinus with occasional PVCs Rate: 64 Intervals: QT interval prolonged 516 ms QRS axis: +[address]/T wave changes: None Comparison with prior tracing: Unchanged since prior study 02/15/2020 Interpretation: Occasional PVC. QT prolongation Discharge - Discharge Clinical Impression: Rib fracture Condition: Stable Disposition: HOME, SELF-CARE Additional Instructions: Rib Injuries and Fractures You have been diagnosed as having either bruised or broken ribs. These two injuries are treated in the same way. It will usually take four to six weeks for these injured ribs to heal. Sometimes, rib belts or anesthetic injections of the chest wall help reduce the pain. If you are using a rib belt, you should cough or take a deep breath at least every hour or two to prevent lung complications. You should not engage in any strenuous physical activity until released by your physician. The usual rule is "if it hurts, don't do it." Rib fractures can lead to serious lung complications including lung collapse, hemorrhage, and pneumonia. You should call the physician or return at once if any of the following occur: (1) Fever or chills. (2) Persistent cough, coughing up blood, or shortness of breath. (3) Increasing pain. (4) Weakness, lightheadedness, or fainting. Take prescribed medication as needed. See your doctor this week for follow-up. Prescriptions: Tramadol HCl [Ultram 50 mg Tablet] 50 mg PO Q4HP PRN #12 tab PRN Reason: Referrals: [facility] [Primary Care Provider] - Follow up as needed
[2020-04-24 09:56] LABS: ABSOLUTE EOSINOPHILS # (AUTO) 0.1 10^3/uL (0.0-0.6); ABSOLUTE LYMPHOCYTES (AUTO) 1.5 10^3/uL (0.5-4.7); ABSOLUTE MONOCYTES (AUTO) 0.8 10^3/uL (0.1-1.4); ABSOLUTE NEUT (AUTO) 2.4 10^3/uL (1.7-8.2); BASOPHILS % (AUTO) 0.6 % (0-2); EOSINOPHILS % (AUTO) 1.2 % (0-6); HEMATOCRIT 37.2 % (36.0-47.0); HEMOGLOBIN 12.3 g/dL (12.0-15.5); LYMPHOCYTES % (AUTO) 31.9 % (13-45); MEAN CORPUSCULAR HEMOGLOBIN 26.9 pg (27.0-33.4); MEAN CORPUSCULAR VOLUME 82 fl (80-97); PLATELET COUNT 155 10^3/uL (150-450); RED BLOOD COUNT 4.56 10^6/uL (3.72-5.28); RED CELL DISTRIBUTION WIDTH 16.4 % (11.5-14.0); SEGMENTED NEUTROPHILS % (AUTO) 50.3 % (42-78); TOTAL CELLS COUNTED % (AUTO) 100 %; WHITE BLOOD COUNT 4.8 10^3/uL (4.0-10.5)
[2020-04-24 10:17] LABS: ALBUMIN 3.1 g/dL (3.5-5.0); ALKALINE PHOSPHATASE 81 U/L (38-126); ANION GAP 7 (5-19); ASPARTATE AMINO TRANSFERASE 38 U/L (14-36); BILIRUBIN,TOTAL 1.1 mg/dL (0.2-1.3); BLOOD UREA NITROGEN 11 mg/dL (7-20); CALCIUM 8.8 mg/dL (8.4-10.2); CARBON DIOXIDE 28 mmol/L (22-30); CHLORIDE 101 mmol/L (98-107); GLUCOSE 91 mg/dL (75-110); POTASSIUM 3.2 mmol/L (3.6-5.0)
--- NOTE | 2020-04-24 11:08 | RADIOLOGY REPORT (SQ) ---
EXAM DESCRIPTION: CT SOFT TISSUE NECK WITH; CT CHEST WITH IMAGES COMPLETED DATE/TIME: 04/24/2020 9:45 am REASON FOR STUDY: right side neck pain. COMPARISON: Soft tissue neck radiograph, 04/23/2020 TECHNIQUE: Post IV contrasted scanning from skull base through the lungs to the diaphragms with revi ew of bone, soft tissue and lung windows. Reconstructed coronal and sagittal MPR images reviewed. A ll images stored on PACS. All CT scanners at this facility use dose modulation, iterative reconstruction, and/or weight based d osing when appropriate to reduce radiation dose to as low as reasonably achievable (ALARA). [facility]: Dose Right [facility]: CareDose [facility]: Dose Right [facility]: Teradose 4D [facility]: GigaPan CONTRAST TYPE AND DOSE: contrast/concentration: Isovue 350.00 mmol/ml; Total Contrast Delivered: 57. 0 ml; Total Saline Delivered: 65.0 ml RENAL FUNCTION: GFR > 60. RADIATION DOSE: CT Rad equipment meets quality standard of care and radiation dose reduction techniq ues were employed. CTDIvol: 6.1 - 10.8 mGy. DLP: 577 mGy-cm. . LIMITATIONS: None. FINDINGS: SKULL BASE: Intact. MAJOR SALIVARY GLANDS: No solid or cystic masses. No inflammatory changes. LYMPHADENOPATHY: No adenopathy. MUCOSAL MASSES OR ASYMMETRY: Evaluation of the tongue base is limited due to metallic beam hardening artifact secondary to dental amalgam. Visualized oropharynx and nasopharynx have a symmetric appeara nce. LARYNX/CORDS: No abnormal findings. VASCULAR STRUCTURES: Thoracic aorta has normal caliber. Vasculature in the neck is widely patent. LUNGS: Trachea has normal caliber and appearance. No bronchial wall thickening or bronchiectasis. B ackground mild pulmonary emphysema. No focal consolidation. No significant ground-glass attenuation . PLEURA: No pleural effusion or pneumothorax. MEDIASTINUM: No mediastinal mass or adenopathy. HEART: Heart has normal size. No pericardial effusion. No significant coronary artery atherosclero sis. UPPER ABDOMEN: Small right superior pole renal cortical cyst. Focal fatty infiltration at the falci form ligament. BONES: Age-indeterminate nondisplaced right lateral 8th rib fracture, possibly chronic. No suspiciou s bone lesions. THYROID: Normal size. No masses. PARANASAL SINUSES: Clear. OTHER: Visualized intracranial contents are unremarkable. IMPRESSION: 1. No significant finding in the soft tissues of the neck. No lymphadenopathy or subcutaneous mass o r fluid. 2. Background mild pulmonary emphysema. No acute pulmonary disease. 3. Age indeterminate nondisplaced fracture right lateral 8th rib, has a more chronic appearance. TECHNICAL DOCUMENTATION: JOB ID: [id number] Quality ID # [id number]: Final reports with documentation of one or more dose reduction techniques (e.g., Au tomated exposure control, adjustment of the mA and/or kV according to patient size, use of iterative reconstruction technique) 2010 [employer]- All Rights Reserved Reading location - IP/workstation name: [email or web address]
--- NOTE | 2020-04-24 11:08 | RADIOLOGY REPORT (SQ) ---
EXAM DESCRIPTION: CT SOFT TISSUE NECK WITH; CT CHEST WITH IMAGES COMPLETED DATE/TIME: 04/24/2020 9:45 am REASON FOR STUDY: right side neck pain. COMPARISON: Soft tissue neck radiograph, 04/23/2020 TECHNIQUE: Post IV contrasted scanning from skull base through the lungs to the diaphragms with revi ew of bone, soft tissue and lung windows. Reconstructed coronal and sagittal MPR images reviewed. A ll images stored on PACS. All CT scanners at this facility use dose modulation, iterative reconstruction, and/or weight based d osing when appropriate to reduce radiation dose to as low as reasonably achievable (ALARA). [facility]: Dose Right [facility]: CareDose [facility]: Dose Right [facility]: Teradose 4D [facility]: [employer] CONTRAST TYPE AND DOSE: contrast/concentration: Isovue 350.00 mmol/ml; Total Contrast Delivered: 57. 0 ml; Total Saline Delivered: 65.0 ml RENAL FUNCTION: GFR > 60. RADIATION DOSE: CT Rad equipment meets quality standard of care and radiation dose reduction techniq ues were employed. CTDIvol: 6.1 - 10.8 mGy. DLP: 577 mGy-cm. . LIMITATIONS: None. FINDINGS: SKULL BASE: Intact. MAJOR SALIVARY GLANDS: No solid or cystic masses. No inflammatory changes. LYMPHADENOPATHY: No adenopathy. MUCOSAL MASSES OR ASYMMETRY: Evaluation of the tongue base is limited due to metallic beam hardening artifact secondary to dental amalgam. Visualized oropharynx and nasopharynx have a symmetric appeara nce. LARYNX/CORDS: No abnormal findings. VASCULAR STRUCTURES: Thoracic aorta has normal caliber. Vasculature in the neck is widely patent. LUNGS: Trachea has normal caliber and appearance. No bronchial wall thickening or bronchiectasis. B ackground mild pulmonary emphysema. No focal consolidation. No significant ground-glass attenuation . PLEURA: No pleural effusion or pneumothorax. MEDIASTINUM: No mediastinal mass or adenopathy. HEART: Heart has normal size. No pericardial effusion. No significant coronary artery atherosclero sis. UPPER ABDOMEN: Small right superior pole renal cortical cyst. Focal fatty infiltration at the falci form ligament. BONES: Age-indeterminate nondisplaced right lateral 8th rib fracture, possibly chronic. No suspiciou s bone lesions. THYROID: Normal size. No masses. PARANASAL SINUSES: Clear. OTHER: Visualized intracranial contents are unremarkable. IMPRESSION: 1. No significant finding in the soft tissues of the neck. No lymphadenopathy or subcutaneous mass o r fluid. 2. Background mild pulmonary emphysema. No acute pulmonary disease. 3. Age indeterminate nondisplaced fracture right lateral 8th rib, has a more chronic appearance. TECHNICAL DOCUMENTATION: JOB ID: [id number] Quality ID # [id number]: Final reports with documentation of one or more dose reduction techniques (e.g., Au tomated exposure control, adjustment of the mA and/or kV according to patient size, use of iterative reconstruction technique) 2010 [employer]- All Rights Reserved Reading location - IP/workstation name: [email or web address]
[2020-04-24] MEDS ORDERED: OXYCODONE-ACETAMINOPHEN 5-325 MG TABLET PO ONE (11:14)
[2020-04-24 14:05] VITALS: BP 98/62
--- NOTE | 2020-04-24 17:16 | EKG REPORT ---
SEVERITY:- ABNORMAL ECG - SINUS RHYTHM VENTRICULAR PREMATURE COMPLEX BORDERLINE T ABNORMALITIES, ANT-LAT LEADS PROLONGED QT INTERVAL : Confirmed by: Nixon Jamison 24-Apr-2020 17:16:05
== END 2020-04-24 14:05 | disposition home or self-care (01) ==
LOC: ER 13:26
DX: M84.48XA Pathological fracture, other site, initial encounter for fracture (principal); M54.2 Cervicalgia; R63.4 Abnormal weight loss; M25.511 Pain in right shoulder; I49.3 Ventricular premature depolarization; J43.9 Emphysema, unspecified; E03.9 Hypothyroidism, unspecified; Z79.899 Other long term (current) drug therapy
CPT/HCPCS: 93005; 99285; 96374; 96375; 36415; 83735; 85025; 80053; 71046; 70360; 70491; 71260; 93010; J2270; J2405